=== PATIENT | male | born 1950 | race Two or more races ===

== ENCOUNTER 2017-07-07 18:06 | Observation (INO) | payer MEDICAID, OTHER ==
[~2017-07-07] VITALS: Ht 154.9 cm; Wt 68.0 kg
[2017-07-07 19:32] LABS: Basophils # (auto) 0.1 uL; Eosinophils # (auto) 0.3 uL; Hemoglobin 8.1 g/dL (13.5-17.5); Lymphocytes # (auto) 1.2 uL; Monocytes # (auto) 0.5 uL; Monocytes % (auto) 3.8 % (0.0-12.0); Red Cell Distribution Width 13.9 % (11.8-14.3)
[2017-07-07 19:34] LABS: Basophils % (auto) 0.9 % (0.0-2.0); Hematocrit 24.3 % (41.0-53.0); Lymphocytes % (auto) 8.5 % (10.0-50.0); Mean Corpuscular Hemoglobin 32.8 pg (28.0-32.0); Mean Corpuscular Hgb Conc. 33.4 g/dL (32.0-36.0); Mean Corpuscular Volume 98.1 fL (80.0-100.0); Mean Platelet Volume 8.1 fL (6.9-10.8); Neutrophils # (auto) 11.9 uL; Neutrophils % (auto) 84.8 % (37.0-80.0); Platelet Count (auto) 265 10^3/uL (140-450)
[2017-07-07 19:49] LABS: Albumin 3.1 g/dL (3.4-5.0); Alkaline Phosphatase 126 U/L (45-117); Anion Gap 14 (5-15); Aspartate Aminotransferase 8 U/L (15-37); BUN/Creatinine Ratio 6.7; Bilirubin, Total 0.2 mg/dL (0.2-1.0); Blood Urea Nitrogen 64 mg/dL (7-18); Calcium 6.9 mg/dL (8.5-10.1); Carbon Dioxide 22 mmol/L (21-32); Chloride 96 mmol/L (98-107); GFR African American 7 mL/min; GFR Non-African American 6 mL/min; Glucose 318 mg/dL (74-106); Potassium 4.5 mmol/L (3.5-5.1); Sodium 132 mmol/L (136-145); Total Protein 7.2 g/dL (6.4-8.2)
[2017-07-07] MEDS ORDERED: SODIUM CHLORIDE 0.9% 1,000 ML IVB ONE (20:35)
[2017-07-07] MEDS ORDERED: ONDANSETRON HCL 4 MG/2 ML VIAL IV ONE (20:45)
[2017-07-07] MEDS ORDERED: MEPERIDINE HCL (25 MG/ML) 1ML VIAL IV ONE (20:45)
[2017-07-07 21:11] LABS: INR 0.98 (0.9-1.15); Partial Thromboplastin Time 30.3 sec (22.64-33.71); Prothrombin Time 10.7 sec (9.37-12.3)
[2017-07-07] MEDS ORDERED: cefTRIAXone 1GM/50ML D5W 50 ML IV ONE (23:00)
[2017-07-08 00:30] VITALS: BP 153/49
== END 2017-07-08 01:30 | disposition short-term general hospital (02) | DRG 340 ==
LOC: ER 18:11 → OVERFLOW 20:37 → ER 07-08 01:30
PROVIDERS: ADMIT Family Medicine; ATTEND Family Medicine
DX: S72.144A Nondisplaced intertrochanteric fracture of right femur, initial encounter for closed fracture (principal); I12.0 Hypertensive chronic kidney disease with stage 5 chronic kidney disease or end stage renal disease; E10.22 Type 1 diabetes mellitus with diabetic chronic kidney disease; N18.6 End stage renal disease; V87.8XXA Person injured in other specified noncollision transport accidents involving motor vehicle (traffic), initial encounter; Y93.89 Activity, other specified; Y92.89 Other specified places as the place of occurrence of the external cause; Y99.8 Other external cause status; E10.65 Type 1 diabetes mellitus with hyperglycemia; Z74.01 Bed confinement status; Z79.4 Long term (current) use of insulin; Z82.49 Family history of ischemic heart disease and other diseases of the circulatory system; Z99.2 Dependence on renal dialysis; Z89.512 Acquired absence of left leg below knee; Z99.3 Dependence on wheelchair; D63.8 Anemia in other chronic diseases classified elsewhere
CPT/HCPCS: 36415; 71010; 72192; 73502; 80053; 83735; 84484; 85025; 85610; 85730; 93005; 96361; 96365; 96375; 99291; G0378; J0696; J2175; J2405

== ENCOUNTER 2017-09-30 17:14 | Emergency (ER) | payer OTHER, MEDICAID ==
[~2017-09-30] VITALS: Ht 147.3 cm; Wt 49.9 kg
[2017-09-30 19:35] LABS: Basophils # (auto) 0.1 uL; Basophils % (auto) 0.7 % (0.0-2.0); Eosinophils # (auto) 0.3 uL; Eosinophils % (auto) 2.1 % (0.0-7.0); Hematocrit 33.8 % (41.0-53.0); Hemoglobin 11.1 g/dL (13.5-17.5); Lymphocytes # (auto) 1.5 uL; Lymphocytes % (auto) 11.2 % (10.0-50.0); Mean Corpuscular Hemoglobin 31.8 pg (28.0-32.0); Mean Corpuscular Hgb Conc. 32.7 g/dL (32.0-36.0); Mean Corpuscular Volume 97.3 fL (80.0-100.0); Monocytes # (auto) 0.6 uL; Monocytes % (auto) 4.1 % (0.0-12.0); Neutrophils # (auto) 11.1 uL; Neutrophils % (auto) 81.9 % (37.0-80.0); Platelet Count (auto) 369 10^3/uL (140-450); Red Blood Cells 3.47 10^6/uL (4.5-5.90); Red Cell Distribution Width 14.5 % (11.8-14.3); White Blood Cell 13.5 10^3/uL (4.4-10.8)
[2017-09-30 19:41] LABS: Albumin 2.8 g/dL (3.4-5.0); BUN/Creatinine Ratio 4.2; Bilirubin, Total 0.2 mg/dL (0.2-1.0); Magnesium 2.2 mg/dL (1.6-2.6); Total Protein 7.3 g/dL (6.4-8.2)
[2017-09-30 19:43] LABS: Potassium 2.9 mmol/L (3.5-5.1)
[2017-09-30] MEDS ORDERED: POTASSIUM CHL 20 Meq TABLET PO ONE (20:30)
[2017-09-30] MEDS ORDERED: cloNIDine HCL 0.1 MG TAB ONE (22:30)
[2017-09-30] MEDS ORDERED: cloNIDine HCL 0.1 MG TAB PO ONE (22:45)
[2017-09-30 23:30] VITALS: BP 148/72
== END 2017-10-01 00:03 | disposition home or self-care (01) ==
LOC: EDBD 17:14 → ER 17:19
DX: E11.649 Type 2 diabetes mellitus with hypoglycemia without coma (principal); T38.3X5A Adverse effect of insulin and oral hypoglycemic [antidiabetic] drugs, initial encounter; R41.82 Altered mental status, unspecified; F41.9 Anxiety disorder, unspecified; N18.6 End stage renal disease; I12.0 Hypertensive chronic kidney disease with stage 5 chronic kidney disease or end stage renal disease; Z99.2 Dependence on renal dialysis; Z88.0 Allergy status to penicillin; Z79.4 Long term (current) use of insulin; Z89.512 Acquired absence of left leg below knee; Z89.511 Acquired absence of right leg below knee; Y92.9 Unspecified place or not applicable
CPT/HCPCS: 36415; 80053; 83735; 84484; 85025; 93005